=== PATIENT | female | born 1990 | race Two or more races ===

== ENCOUNTER 2023-05-18 11:03 | Outpatient (CLI) ==
[~2023-05-18] VITALS: Ht 162.6 cm; Wt 79.2 kg
[2023-05-18] MEDS ORDERED: ACET-897 PO (11:24)
[2023-05-18] MEDS ORDERED: TUMS750C5 PO (11:24)
[2023-05-18] MEDS ORDERED: PRENTAB9 PO (11:24)
[2023-05-18] MEDS ORDERED: HOME MED LIST COMPLETE! XX SCH (11:25)
[2023-05-18 11:26] VITALS: BP 135/79
[2023-05-18 12:23] LABS: HEMATOCRIT 42.8 % (36.0-47.0); HEMOGLOBIN 14.6 g/dl (12.0-15.5); MEAN CORPUSCULAR HEMOGLOBIN 32.2 pg (27.0-33.0); MEAN CORPUSCULAR HGB CONC 34.1 g/dl (32.0-36.5); MEAN CORPUSCULAR VOLUME 94.5 fl (80.0-96.0); PLATELET COUNT, AUTOMATED 169 10^3/uL (150-450); RED BLOOD COUNT 4.53 10^6/uL (4.00-5.40); WHITE BLOOD COUNT 10.8 10^3/uL (4.0-10.0)
[2023-05-18 13:06] LABS: ALBUMIN 2.8 G/DL (3.2-5.2); ALKALINE PHOSPHATASE 102 U/L (46-116); ALT/SGPT 13 U/L (7.0-40); AMYLASE 71 U/L (30-118); AST/SGOT 9 U/L (<34); BILIRUBIN,TOTAL 0.2 MG/DL (0.3-1.2); BLOOD UREA NITROGEN 7 MG/DL (9-23); CALCIUM LEVEL 8.4 MG/DL (8.5-10.1); CARBON DIOXIDE LEVEL 23 MMOL/L (20-31); CHLORIDE LEVEL 105 MMOL/L (98-107); CREATININE FOR GFR 0.57 MG/DL (0.55-1.30); GLOMERULAR FILTRATION RATE > 60.0 (>60); GLUCOSE, FASTING 77 MG/DL (60-100); LIPASE 27 U/L (12-53); POTASSIUM SERUM 3.9 MMOL/L (3.5-5.1); SODIUM LEVEL 138 MMOL/L (136-145); TOTAL PROTEIN 5.9 G/DL (5.7-8.2)
[2023-05-18 13:25] VITALS: BP 131/73
[2023-05-18 15:24] VITALS: BP 122/72
== END 2023-05-18 16:00 | disposition home or self-care (01) ==
LOC: M LDO 11:03
PROVIDERS: ATTEND Obstetrics & Gynecology
DX: O26.893 Other specified pregnancy related conditions, third trimester (principal); R10.31 Right lower quadrant pain; O09.13 Supervision of pregnancy with history of ectopic pregnancy, third trimester; Z3A.30 30 weeks gestation of pregnancy
CPT/HCPCS: 36415; 59025; 76817; 76857; 80053; 82150; 83690; 85027; G0463

== ENCOUNTER → 2023-07-01 | Outpatient (REF) | payer OTHER ==
[~2023-07-01] MED LIST: ACET-897 PO; PRENTAB9 PO; TUMS750C5 PO
== END ==
LOC: M SFHCWAGY 13:34
PROVIDERS: ATTEND Specialist
DX: Z34.83 Encounter for supervision of other normal pregnancy, third trimester (principal)
CPT/HCPCS: 87081; 87186; G0463

== ENCOUNTER → 2023-07-07 | Outpatient (REF) | payer OTHER | LOC: M PLALAB 11:23 | PROVIDERS: ATTEND Advanced Practice Midwife | DX: Z34.83 Encounter for supervision of other normal pregnancy, third trimester (principal); N89.8 Other specified noninflammatory disorders of vagina ==

== ENCOUNTER 2023-07-19 03:00 | Inpatient (IN) | payer OTHER ==
[2023-07-19] VITALS (24 sets, daily range): BP systolic 105–143; BP diastolic 54–81; O2SAT 97–98
[~2023-07-19] VITALS: Ht 162.6 cm; Wt 84.8 kg
[2023-07-19] MEDS ORDERED: HOME MED LIST COMPLETE! XX SCH (03:20)
[2023-07-19] MEDS ORDERED: LR 1,000 ML IV SCH (03:40)
[2023-07-19] MEDS ORDERED: LR 1,000 ML IV ONE (03:40)
[2023-07-19] MEDS ORDERED: AMPICILLIN SOD 2 GM in D5W MINI-BAG PLUS 100 ML IV STA (04:24)
[2023-07-19 04:47] LABS: HEMATOCRIT 42.6 % (36.0-47.0); HEMOGLOBIN 14.7 g/dl (12.0-15.5); MEAN CORPUSCULAR HEMOGLOBIN 31.4 pg (27.0-33.0); MEAN CORPUSCULAR HGB CONC 34.5 g/dl (32.0-36.5); PLATELET COUNT, AUTOMATED 173 10^3/uL (150-450); RED BLOOD COUNT 4.68 10^6/uL (4.00-5.40); WHITE BLOOD COUNT 12.5 10^3/uL (4.0-10.0)
[2023-07-19] MEDS ORDERED: FENTANYL 2MCG/ML ROPIVACAINE 0.2% IN 0.9% NACL 100ML IVBAG As Ordered ONE (04:57)
[2023-07-19] MEDS ORDERED: TRANEXAMIC ACID INJection 1,000 MG in NS 100 ML IV PRN (05:00)
[2023-07-19] MEDS ORDERED: OXYTOCIN DRIP 30 UNITS in IV 1 EA IV PRN ×4 (05:00)
[2023-07-19] MEDS ORDERED: LIDOCAINE 1% MDV 20ML VIAL INFIL PRN (05:00)
[2023-07-19] MEDS ORDERED: diphenhydrAMINE 50MG/ML VIAL IV PRN (05:05)
[2023-07-19] MEDS ORDERED: NALOXONE INJ 0.4MG/1ML VIAL IV PRN (05:05)
[2023-07-19] MEDS ORDERED: FENTANYL/ROPIVACAINE/NACL BAG 100 ML EPIDURAL SCH (05:05)
[2023-07-19] MEDS ORDERED: ePHEDrine SULFATE 25 MG/5 ML(5MG/ML) SYRINGE IVP PRN (05:05)
[2023-07-19] MEDS ORDERED: EPIDURAL/PCA KEYS XX PRN (05:05)
[2023-07-19] MEDS ORDERED: LR 500 ML IV PRN (05:05)
[2023-07-19] MEDS ORDERED: ONDANSETRON 4MG 2ML VIAL IV PRN (05:05)
[2023-07-19] MEDS ORDERED: METHYLERGONOVINE MALEATE 0.2MG/ML 1ML VIAL IM PRN (07:35)
[2023-07-19] MEDS ORDERED: AMPICILLIN SOD 1 GM in D5W MINI-BAG PLUS 100 ML IV SCH (08:00)
[2023-07-19] MEDS: PRENATAL VITAMINS CHEWABLE TABLET PO SCH (09:00)
[2023-07-19] MEDS ORDERED: IBUPROFEN 600MG TAB PO PRN (10:40)
[2023-07-19] MEDS ORDERED: ACETAMINOPHEN TAB 650MG DOSE (2X325MG) PO PRN (10:40)
[2023-07-19] MEDS ORDERED: RHOGAM 300MCG (1500IU) INJ IM SCH (10:40)
[2023-07-19] MEDS ORDERED: DOCUSATE SODIUM 100MG CAPSULE PO PRN (10:40)
[2023-07-19] MEDS ORDERED: MOM 30ML SUSPENSION UDC PO PRN (10:40)
[2023-07-19] MEDS ORDERED: ANUSOL HC CREAM 30GM TOP PRN (10:40)
[2023-07-19] MEDS ORDERED: DIBUCAINE 1% OINTMENT 30GM TOP PRN (10:40)
[2023-07-19] MEDS: IBUPROFEN 800 MG TAB PO PRN ×2 (10:53→20:06)
[2023-07-19] MEDS: ACETAMINOPHEN 500 MG TAB PO PRN (10:54)
[2023-07-19] MEDS: CALCIUM CARBONATE 500 MG CHEW U/D PO PRN (15:25)
[2023-07-20] MEDS: ACETAMINOPHEN 500 MG TAB PO PRN (00:51)
[2023-07-20] MEDS: IBUPROFEN 800 MG TAB PO PRN ×2 (05:00→15:37)
[2023-07-20 06:00] VITALS: BP 102/56; O2SAT 96
[2023-07-20] MEDS: PRENATAL VITAMINS CHEWABLE TABLET PO SCH (07:49)
[2023-07-20] MEDS: CALCIUM CARBONATE 500 MG CHEW U/D PO PRN ×2 (07:49→15:37)
[2023-07-21] MEDS ORDERED: MEASLES,MUMPS,RUBELLA VACCINE INJ (MMR-II) SC.IMMUN ONE (09:00)
== END 2023-07-20 17:55 | disposition home or self-care (01) | DRG 807 ==
LOC: M LDO 03:00 → M LDI 04:24 → M OBS 11:03
PROVIDERS: ADMIT Obstetrics & Gynecology; ATTEND Advanced Practice Midwife
PROC: 10E0XZZ Delivery of Products of Conception, External Approach (ICD-10-PCS; principal; 2023-07-19)
PROC: 10907ZC Drainage of Amniotic Fluid, Therapeutic from Products of Conception, Via Natural or Artificial Opening (ICD-10-PCS; 2023-07-19)
PROC: 0HQ9XZZ Repair Perineum Skin, External Approach (ICD-10-PCS; 2023-07-19)
DX: O99.284 Endocrine, nutritional and metabolic diseases complicating childbirth (principal); Z37.0 Single live birth; Z3A.39 39 weeks gestation of pregnancy; O99.824 Streptococcus B carrier state complicating childbirth; O70.0 First degree perineal laceration during delivery; E83.119 Hemochromatosis, unspecified; O32.6XX0 Maternal care for compound presentation, not applicable or unspecified

== ENCOUNTER → 2023-10-28 | Outpatient (REF) | payer OTHER ==
[2023-10-28 14:57] LABS: APPEARANCE, URINE HAZY (CLEAR); BACTERIA, URINE AUTO NEGATIVE (NEGATIVE); BILIRUBIN, URINE AUTO NEGATIVE (NEGATIVE); BLOOD, URINE BLOOD NEGATIVE (NEGATIVE); COLOR, URINE YELLOW (YELLOW); GLUCOSE, URINE (UA) AUTO NEGATIVE (NEGATIVE); KETONE, URINE AUTO NEGATIVE (NEGATIVE); LEUKOCYTE ESTERASE, URINE AUTO 2+ (NEGATIVE); MUCUS, URINE SMALL (NEGATIVE); NITRITE, URINE AUTO NEGATIVE (NEGATIVE); PROTEIN, URINE AUTO NEGATIVE (NEGATIVE); RBC, URINE AUTO 0 /HPF (0-3); SPECIFIC GRAVITY URINE AUTO 1.016 (1.002-1.035); SQUAMOUS EPITHELIAL CELL UR AU 6 /HPF (0-6); UROBILINOGEN, URINE AUTO 0.2 mg/dL (0.0-2.0); WBC, URINE AUTO 9 /HPF (0-3)
== END ==
LOC: M PLALAB 09:32
PROVIDERS: ATTEND Advanced Practice Midwife
DX: R10.2 Pelvic and perineal pain (principal); M54.50 Low back pain, unspecified

== ENCOUNTER → 2023-11-05 | Outpatient (CLI) | payer OTHER | LOC: M WHC 10:28 | PROVIDERS: ATTEND Advanced Practice Midwife | DX: N83.292 Other ovarian cyst, left side (principal) ==

== ENCOUNTER → 2024-02-17 | Outpatient (REF) | payer OTHER | LOC: M PLALAB 10:09 | PROVIDERS: ATTEND Advanced Practice Midwife | DX: Z12.4 Encounter for screening for malignant neoplasm of cervix (principal) | CPT/HCPCS: 87624; G0123 ==